=== PATIENT | male | born 1975 | race African-American/Black ===

== ENCOUNTER 2022-04-13 06:10 | Emergency (ER) | payer MEDICAID ==
[~2022-04-13] VITALS: Ht 180.3 cm; Wt 87.1 kg
[2022-04-13 06:22] VITALS: BP 114/68
--- NOTE | 2022-04-13 06:33 | NUR ---
Dr. Mckinley examining patient.
[2022-04-13] MEDS ORDERED: NAPR-1704 PO (06:48)
[2022-04-13] MEDS ORDERED: ACYC400T14 PO (06:48)
[2022-04-13 06:58] VITALS: BP 118/68
--- NOTE | 2022-04-13 06:58 | NUR ---
Patient discharged with v/s stable. Written and verbal after care instructions given and explained. Patient alert, oriented and verbalized understanding of instructions. Ambulatory with steady gait. All questions addressed prior to discharge. ID band removed. Patient advised to follow up with PMD. Rx of Acyclovir and Naproxen given. Patient educated on indication of medication including possible reaction and side effects. Opportunity to ask questions provided and answered.
== END 2022-04-13 06:58 | disposition home or self-care (01) ==
LOC: MED 06:10
DX: K13.0 Diseases of lips (principal); F20.9 Schizophrenia, unspecified; E11.9 Type 2 diabetes mellitus without complications; F15.10 Other stimulant abuse, uncomplicated; F17.210 Nicotine dependence, cigarettes, uncomplicated; Z79.4 Long term (current) use of insulin; Z79.899 Other long term (current) drug therapy
CPT/HCPCS: 82948; 99283

== ENCOUNTER 2022-04-13 09:39 | Emergency (ER) | payer MEDICAID ==
[~2022-04-13] VITALS: Ht 180.3 cm; Wt 87.1 kg
[~2022-04-13 09:39] MED LIST: ACYC400T14 PO; NAPR-1704 PO
[2022-04-13 09:47] VITALS: BP 126/88
--- NOTE | 2022-04-13 10:00 | NUR ---
47YO MALE PT BIB SELF C/O SI XTODAY. REPORTS ONSET AFTER METH USE THIS MORNING. STATES FEELING "NERVOUS""SOMETHING IS WRONG WITH MY BRAIN". +AUDIO/VISUAL HALLUCINATIONS "SEE DEMONS" "TELLING ME TO HURT MYSELF". DENIES THOUGHT OF HURTING OTHERS. REPORTS RECENT RELEASE FROM [facility] 2DAYS AGO AND CURRENTLY STAYING IN [place]. STATES PREVIOUS SIMILIAR SI W/ PLANNED DRUG USE. STATES LAST TAKING RX SEROQUEL LAST NIGHT. PT AAOX4 W/ DELAYED CLEAR SPEECH. ROOM STRIPPED OF POTENTIAL HARMFUL ITEMS. PT IN GOWN AND IN VIEW. BED AT LOWEST POSITION, BED RAILS UPX2. HX: DIABETES, SCHIZO NKA
--- NOTE | 2022-04-13 10:05 | NUR ---
MD ABDALLA AT BEDSIDE FOR EVALUATION
--- NOTE | 2022-04-13 10:26 | NUR ---
pt swabbed for covid(soifa/novel) walked to lab
--- NOTE | 2022-04-13 10:28 | NUR ---
CALL RECEIVED FROM MD SRAN. LEWIS TO CALL BACK FOR TELEPYSCH IN 1 HR.
--- NOTE | 2022-04-13 10:35 | NUR ---
LAB AT BEDSIDE
[2022-04-13 10:48] LABS: BASOPHILS # (AUTO) 0.1 K/uL (0.00-0.22); BASOPHILS % (AUTO) 1.1 % (0.0-2.0); EOSINOPHILS # (AUTO) 0.2 K/uL (0-0.4); HEMATOCRIT 41.1 % (36-52); HEMOGLOBIN 13.7 g/dL (12.0-18.0); LYMPHOCYTES % (AUTO) 16.8 % (20.5-51.1); MEAN CORPUSCULAR HEMOGLOBIN 28 pg (27-31); MEAN CORPUSCULAR HGB CONC 33 g/dL (33-37); MEAN CORPUSCULAR VOLUME 83.3 fL (80-94); MONOCYTES # (AUTO) 1.1 K/uL (0.8-1.0); MONOCYTES % (AUTO) 8.9 % (1.7-9.3); NEUTROPHILS # (AUTO) 8.6 K/uL (1.8-7.7); NEUTROPHILS % (AUTO) 71.2 % (42.2-75.2); PLATELET COUNT (AUTO) 314 K/uL (140-450); RED BLOOD CELL COUNT(AUTO) 4.94 MIL/uL (4.20-6.10); RED CELL DISTRIBUTION WIDTH 15.6 % (11.6-13.7); WHITE BLOOD COUNT (AUTO) 12.1 K/uL (4.8-10.8)
[2022-04-13 10:59] LABS: APPEARANCE,URINE CLEAR (CLEAR); BILIRUBIN,URINE 1+ (NEGATIVE); BLOOD, URINE NEGATIVE (NEGATIVE); COLOR,URINE YELLOW (YELLOW); LEUKOCYTE ESTERASE ,URINE NEGATIVE (NEGATIVE); NITRITE, URINE NEGATIVE (NEGATIVE); UGLUCOSE NEGATIVE (NEGATIVE)
[2022-04-13 11:11] LABS: BARBITURATE, URINE NEGATIVE ng/ml (NEG <=200); BENZODIAZEPINE, URINE NEGATIVE ng/mL (NEG <=200); OPIATE, URINE NEGATIVE ng/mL (NEG <=2000)
[2022-04-13 11:17] LABS: ALBUMIN 4.3 g/dL (3.4-5.0); ANION GAP 13.9 (8-16); ASPARTATE AMINOTRANSFERASE 56 U/L (15-37); CARBON DIOXIDE 23.8 mmol/L (21-32); CHLORIDE 103 mmol/L (98-107); CREATININE 1.4 mg/dL (0.6-1.3); GFR ARICAN-AMERICAN 69 mL/min (>90); GLUCOSE 102 mg/dL (74-106); POTASSIUM 3.7 mmol/L (3.5-5.1); SODIUM SERUM 137 mmol/L (136-145); TOTAL BILIRUBIN 0.3 mg/dL (0.0-1.0); UREA NITROGEN, BLOOD 23 mg/dL (7-18)
[2022-04-13 11:18] LABS: ACETAMINOPHEN < 0.5 ug/ml (10-30); SALICYLATE < 2.8 mg/dL (2.8-20.0)
[2022-04-13 11:22] LABS: CANNABINOID, URINE NEGATIVE ng/mL (NEG <=50); COCAINE, URINE NEGATIVE ng/mL (NEG <=300); PHENCYCLIDINE SCREEN,URINE NEGATIVE ng/mL (NEG <=25)
--- NOTE | 2022-04-13 11:32 | NUR ---
PER MD PILY MD UNABLE TO LOG IN AND WILL CALL BACK FOR TELEPSYCH IN 20 MIN.
--- NOTE | 2022-04-13 12:04 | NUR ---
DR NASCIMENTO ON ZOOM WITH PATIENT AT THIS TIME
--- NOTE | 2022-04-13 13:06 | NUR ---
PT PLACED ON [address] ABDALLA AT 1255
--- NOTE | 2022-04-13 14:51 | NUR ---
CALL RECEIVED FROM [facility]. PT ACCEPTED PER ELIAS, ILDA. UPDATED VITALS GIVEN. PENDING CALL BACK W/ PLACEMENT DETAILS.
--- NOTE | 2022-04-13 15:39 | NUR ---
REPORT GIVEN TO MARCO ANTONIO ALMAGUER AT [facility]. UPDATED ON PT STATUS AND MADE AWARE OF PENDING TX/ETA. [facility] [id number] MENDOZA [phone]
--- NOTE | 2022-04-13 16:53 | NUR ---
[facility] AT BEDSIDE FOR TRANSPORT
[2022-04-13] MEDS ORDERED: OLANZapine 5 MG ODT PO SCH (17:00)
[2022-04-13] MEDS ORDERED: ACYCLOVIR 200 MG CAP PO ONE (17:00)
[2022-04-13 17:02] VITALS: BP 122/94
--- NOTE | 2022-04-13 17:02 | NUR ---
Patient to be transferred to [facility] . Is being transferred due to HIGHER LEVEL OF CARE. Receiving facility has accepting physician and available space. ER physician has signed transfer form. Patient or responsible alliance party has agreed to transfer and signed form. Patient belongings inventoried and will be sent with patient. Copy of nursing notes, lab reports, Physicians Orders to be sent with patient. Report called to MARCO ANTONIO ALMAGUER at receiving facility. [facility] [place] PROVIDED VIA [facility]. ETA TO FACILITY <80MIN.
--- NOTE | 2022-04-13 17:03 | NUR ---
Chart checked and completed.
[2022-04-13] MEDS ORDERED: OLANZapine 5 MG ODT PO ONE (21:00)
== END 2022-04-13 17:02 ==
LOC: MED 09:39
DX: R45.851 Suicidal ideations (principal); Z20.822 Contact with and (suspected) exposure to COVID-19; F20.9 Schizophrenia, unspecified; N28.9 Disorder of kidney and ureter, unspecified; F15.10 Other stimulant abuse, uncomplicated; F17.210 Nicotine dependence, cigarettes, uncomplicated; Z79.899 Other long term (current) drug therapy
CPT/HCPCS: 36415; 80053; 80305; 81003; 85025; 87426; 87635; 99285; C9803; G0480; G0482